=== PATIENT | male | born 1995 | race African-American/Black ===

== ENCOUNTER 2017-02-14 19:36 | Emergency (ER) | payer MEDICAID ==
[2017-02-14 19:42] VITALS: BP 121/82; PULSE 96; RESP 18; TEMP 97.9; O2SAT 97
[2017-02-14] MEDS ORDERED: PENICILLIN VK 250MG PREPACK#6 BTL TAKEHOME ONE ×2 (20:22→20:25)
--- NOTE | 2017-02-14 20:28 | EDPHY ---
H & P Time Seen by Provider: 02/14/17 19:39 HPI/ROS: CHIEF COMPLAINT: left elbow pain, toothache HISTORY OF PRESENT ILLNESS: 22-year-old male presents emergency department complaining of left elbow pain. Patient was doing kick boxing was kicked by his opponent in the left forearm hyperextending his elbow laterally. Patient reports he rests it gets a little bit better and then starts using his arm again and it starts to hurt again. No numbness or tingling in his arm, he is [id number]. Patient also complains of a left upper toothache. He saw the dentist last week and was given a prescription for an antibiotic that he misplaced. He denies fevers or chills, no facial swelling, no difficulty swallowing or opening his mouth. Smoking Status: Current every day smoker Physical Exam: GEN: Awake, alert, oriented, no acute distress RESP: nl resp effort HEENT: left upper posterior molar with fracture. No gum erythema or swelling, no abscess, no trismus. Uvula midline. Managing secretions. No meningismus. MSK: Left elbow with full active flexion, extension, pronation and supination, no swelling, 2+ radial pulses, tenderness to palpation 2-3cm distal to medial epicondyle. SKIN: no break in skin. Constitutional: Initial Vital Signs Temperature (C) 36.6 C 02/14/17 19:40 Heart Rate 96 02/14/17 19:40 Respiratory Rate 18 02/14/17 19:40 Blood Pressure 121/82 H 02/14/17 19:40 O2 Sat (%) 97 02/14/17 19:40 O2 Delivery Mode Room Air Allergies/Adverse Reactions: No Known Allergies Allergy (Unverified 04/02/15 23:12) Home Medications: Medication Instructions Recorded Penicillin V Potassium [Pen Vk] 500 mg PO TID 10 Days 02/14/17 MDM/Departure - Depart Disposition: Home, Routine, Self-Care Clinical Impression: Medial epicondylitis of left elbow, Toothache Condition: Good Instructions: Tendinitis (ED), Toothache (ED), Penicillin V (By mouth) Additional Instructions: Rest your arm. Take 600 mg of ibuprofen every 8 hours with food. Take your antibiotics as prescribed. Follow up with the dentist at 1st available appointment. Follow up with orthopedist for arm pain that is not improving in the next 2-3 weeks. Return to the emergency department for any worsening symptoms, new symptoms or concerns. Prescriptions: Penicillin V Potassium [Pen Vk] 500 mg PO TID 10 Days Referrals: Pieter Esquivel MD [Medical Doctor] - As per Instructions (Orthopedist on-call)
== END 2017-02-14 20:33 | disposition home or self-care (01) ==
DX: M77.02 Medial epicondylitis, left elbow (principal); K08.89 Other specified disorders of teeth and supporting structures; F17.200 Nicotine dependence, unspecified, uncomplicated
CPT/HCPCS: A4565

== ENCOUNTER 2017-12-26 17:06 | Emergency (ER) | payer MEDICAID ==
[2017-12-26 17:13] VITALS: BP 141/88
--- NOTE | 2017-12-26 17:15 | EDPHY ---
H & P Stated Complaint: R upper back pain x 3 wks after poss injury cage fighting- pleuritic Time Seen by Provider: 12/26/17 17:15 - Medical/Surgical History Hx Asthma: No Hx Chronic Respiratory Disease: No Hx Diabetes: No Hx Cardiac Disease: No Hx Renal Disease: No Hx Cirrhosis: No Hx Alcoholism: No Hx HIV/AIDS: No Hx Splenectomy or Spleen Trauma: No Other PMH: R FEMUR FX, dental PROBLEMS - Social History Smoking Status: Current every day smoker Constitutional: Initial Vital Signs Temperature (C) 36.7 C 12/26/17 17:09 Heart Rate 77 12/26/17 17:09 Respiratory Rate 16 12/26/17 17:09 Blood Pressure 141/88 H 12/26/17 17:09 O2 Sat (%) 98 12/26/17 17:09 O2 Delivery Mode Room Air Allergies/Adverse Reactions: No Known Allergies Allergy (Verified 12/26/17 17:07) Home Medications: Medication Instructions Recorded Hydrocodone/APAP 5/325 [[place] 1 - 2 each PO Q4-6PRN PRN #20 tab 12/26/17 5/325] Ibuprofen [Motrin] 800 mg PO Q8 #20 tab 12/26/17 Medical Decision Making ED Course/Re-evaluation: CHIEF COMPLAINT: Right upper back pain HISTORY OF PRESENT ILLNESS: The patient is a 22 y/o male complaining of right upper back pain onset 3 weeks ago. He was practicing cage fighting with a sore neck when he believed he injured the right upper back. The pain did not begin until after practice. He thought resting and not exercising would alleviate his pain, but it persisted. Due to this pain he is now having difficulty taking a full breath or having full range of motion in his back. Denies chest pain, abdominal pain, numbness, paresthesias, head injury, fever. REVIEW OF SYSTEMS: A 10 point review of systems was performed and is negative with the exception of the elements mentioned in the history of present illness. PHYSICAL EXAM: HR, BP, O2 Sat, RR. Temp noted General Appearance: Alert, well hydrated, appropriate, and non-toxic appearing. Head: Atraumatic without scalp tenderness or obvious injury Eyes: Pupils equal, round, reactive to light and accommodation, EOMI, no trauma , no injection. Ears: Clear bilaterally, no perforation, normal landmarks Nose: Atraumatic, no rhinorrhea, clear. Throat: Mucus membranes moist. Neck: Supple, nontender, no lymphadenopathy. Respiratory: No retractions, no distress, no wheezes, and no accessory muscle use. Lungs are clear to auscultation bilaterally. Back: Right rhomboid tenderness to palpation. Cardiovascular: Regular rate and rhythm, no murmurs, rubs, or gallops. Bilateral carotid, radial, dorsalis pedis, and posterior tibial pulses intact. Good capillary refill all extremities. Gastrointestinal: Abdomen is soft, nontender, non-distended, no masses, no rebound, no guarding, no peritoneal signs. Musculoskeletal: Normal active ROM of all extremities, atraumatic. Neurological: Alert, appropriate, and interactive. Nonfocal neuro. Skin: No rashes, good turgor, no nodules on palpation. Past medical history: Femur fracture Past surgical history: Denies Family history: Denies Social history: Lives in [place], single, self-employed DIAGNOSTICS/PROCEDURES/CRITICAL CARE TIME: Rib x-ray: Muscle strain, no osseous injury DIFFERENTIAL DIAGNOSIS: The differential diagnosis for the patient's back pain included but was not limited to musculoskeletal pain, epidural abscess, herniated disk, spinal fracture, and intra-abdominal causes including urinary system. MEDICAL DECISION MAKING: The patient is a 22 y/o male presenting with right upper back pain onset 3 weeks ago after practicing cage fighting. On exam he has right rhomboid tenderness to palpation. Rib x-ray ordered. 1743: I reviewed patient's x-ray which does not reveal any osseous injury. Patient most likely has a musculoskeletal strain. 1744: Reassessed patient and discussed imaging findings. I have prescribed him Vicodin and advised him to take Motrin for the pain. I have also referred him to follow up with Noy Calderon. Return precautions provided; patient is comfortable with this plan. Departure - Departure Disposition: Home, Routine, Self-Care Clinical Impression: Rhomboid muscle strain Qualifiers: Encounter type: initial encounter Qualified Code(s): S29.012A - Strain of muscle and tendon of back wall of thorax, initial encounter Condition: Good Instructions: Muscle Strain (ED) Additional Instructions: 1. Take Vicodin as prescribed for severe pain. 2. Take Motrin for pain. 3. Follow up with your primary care provider. 4. Follow up with Noy Calderon. 5. Return to the emergency department for severe pain, fever, numbness, difficulty walking, change in location or nature of pain or other concerns. 6. Try using a heating pad. Referrals: [facility] [Outside] - As per Instructions Prescriptions: Hydrocodone/APAP 5/325 [[place] 5/325] 1 - 2 each PO Q4-6PRN PRN #20 tab PRN Reason: Pain, Moderate Ibuprofen [Motrin] 800 mg PO Q8 #20 tab Report Scribed for: Sujit Townsend Report Scribed by: Geetha Jean Date of Report: 12/26/17 Time of Report: 17:17
== END 2017-12-26 17:51 | disposition home or self-care (01) ==
DX: S29.012A Strain of muscle and tendon of back wall of thorax, initial encounter (principal); F17.200 Nicotine dependence, unspecified, uncomplicated; X58.XXXA Exposure to other specified factors, initial encounter; Y99.8 Other external cause status; Y93.89 Activity, other specified